=== PATIENT | male | born 2000 | race Caucasian/White ===

== ENCOUNTER 2021-03-02 14:32 | Inpatient (IN) ==
[2021-03-02 15:37] LABS: Basophils % 0.4 %; Eosinophils # 0.1 K/mcL (0.0-0.6); Eosinophils % 1.6 %; Hematocrit 43.6 % (37.5-50.1); Hemoglobin 14.3 g/dL (12.9-16.9); Immature Granulocytes % 0.3 % (0-4); Lymphocytes # 1.7 K/mcL (0.6-4.6); Lymphocytes % 18.9 %; Mean Corpuscular HGB Conc 32.8 g/dL (31.6-35.5); Mean Corpuscular Hemoglobin 30.2 pg (28.0-33.3); Mean Platelet Volume 9.4 fL (9.4-12.4); Monocytes # 0.9 K/mcL (0.0-1.3); Monocytes % 9.9 %; Neutrophils # 6.2 K/mcL (1.6-8.9); Platelet Count 348 K/mcL (140-400); Red Blood Count 4.74 M/mcL (4.19-5.50); Red Cell Distribution Width 11.6 % (11.5-14.5); Segmented Neutrophils % 68.9 %
[2021-03-02 15:38] LABS: Bacteria,Urine Few per hpf (None-Few); Bilirubin,Urine Negative (Negative); Blood,Urine Trace (Negative); Clarity,Urine Clear (Clear); Color,Urine Yellow (Yellow); Glucose,Urine (UA) Normal (Normal); Ketones,Urine Negative (Negative); Leukocyte Esterase,Urine Negative (Negative); Mucus,Urine Few per lpf (None-Few); Nitrite,Urine Negative (Negative); Protein,Urine 30 mg/dL (Neg-Trace); Specific Gravity,Urine > 1.030 (1.010-1.025); Squamous Epithelial Cell,Urine Few per hpf (None-Few); Urobilinogen,Urine Normal (Normal); WBC,Urine 0-3 per hpf (0-3)
[2021-03-02 15:46] LABS: Amphetamine Screen,Urine Negative ng/mL (Cutoff=1000); Barbiturate Screen,Urine Negative ng/mL (Cutoff=200); Benzodiazepines Screen,Urine Negative ng/mL (Cutoff=200); Cannabinoid Screen,Urine Negative ng/mL (Cutoff = 50); Cocaine Screen,Urine Negative ng/mL (Cutoff= 300); Opiate Screen,Urine Negative ng/mL (Cutoff=300); Phencyclidine Screen,Urine Negative ng/mL (Cutoff=25)
[2021-03-02 15:57] LABS: Acetaminophen < 10 mcg/mL (10-20); BUN/Creatinine Ratio 17 (6-26); Blood Urea Nitrogen 17 mg/dL (6-20); Calcium 9.2 mg/dL (8.6-10.3); Carbon Dioxide 27 mEq/L (23-29); Chloride 106 mEq/L (98-107); Chol/HDL Ratio 2.6 (0-4.9); Cholesterol 104 mg/dL (< 200); Ethanol < 10 mg/dL (Less than 10); Glucose 83 mg/dL (70-105); HDL Cholesterol 40 mg/dL (40-59); LDL Cholesterol,Calculated 48 mg/dL (< 100); Osmolality,Calculated 287 (280-300); Potassium 3.9 mEq/L (3.5-5.1); Salicylate < 2.5 mg/dL (15.0-30.0); Sodium 138 mEq/L (136-145); Triglycerides 78 mg/dL (< 150); eGFR For African Americans > 60; eGFR For Non-African Americans > 60
[2021-03-02] MEDS ORDERED: *HR* LORazepam 1 MG TABLET PO PRN (18:46)
[2021-03-02] MEDS ORDERED: *HR* LORazepam 2 MG/ML VIAL IM PRN (18:46)
[2021-03-02] MEDS ORDERED: Haloperidol Lactate 5 MG/ML VIAL IM PRN (18:46)
[2021-03-02] MEDS ORDERED: Acetaminophen 325 MG TABLET PO PRN (18:46)
[2021-03-02] MEDS ORDERED: QUEtiapine Fumarate 25 MG TABLET PO PRN (18:46)
[2021-03-02] MEDS ORDERED: hydrOXYzine pamoate 25 MG CAPSULE PO PRN (18:46)
[2021-03-02] MEDS ORDERED: Mag Hydrox/Al Hydrox/Simeth 30 ML UDC PO PRN (18:46)
[2021-03-02] MEDS ORDERED: traZODone 50 MG TABLET PO PRN (18:46)
[2021-03-02] MEDS ORDERED: haloperidoL 5 MG TABLET PO PRN (18:46)
[2021-03-02] MEDS ORDERED: MOM Conc 10 ML UD.LIQ PO PRN (18:46)
[2021-03-02] MEDS ORDERED: Ibuprofen 400 MG TABLET PO PRN (18:46)
[2021-03-02 21:28] LABS: Estimated Average Glucose 100 mg/dl; Hemoglobin A1C 5.1 %
[2021-03-03] MEDS: BuPROPion XL (24 HR) 150 MG TABLET PO SCH (14:37)
[2021-03-03] MEDS ORDERED: traZODone 50 MG TABLET PO SCH (21:00)
[2021-03-04] MEDS: BuPROPion XL (24 HR) 150 MG TABLET PO SCH (08:41)
[2021-03-04] MEDS: traZODone 50 MG TABLET PO SCH (21:06)
[2021-03-05] MEDS: BuPROPion XL (24 HR) 150 MG TABLET PO SCH (08:26)
[2021-03-05] MEDS: traZODone 50 MG TABLET PO SCH (21:39)
[2021-03-06] MEDS: BuPROPion XL (24 HR) 150 MG TABLET PO SCH (08:22)
[2021-03-06 09:13] VITALS: BP 124/78
== END 2021-03-06 17:05 | disposition home or self-care (01) | DRG 881 ==
LOC: EMEROOARM 14:32 → 1ANU 18:17
PROVIDERS: ADMIT Internal Medicine; ATTEND Internal Medicine

== ENCOUNTER 2021-03-24 14:07 | Inpatient (IN) ==
[2021-03-24 14:48] LABS: Bilirubin,Urine Negative (Negative); Blood,Urine Negative (Negative); Clarity,Urine Clear (Clear); Color,Urine Colorless (Yellow); Glucose,Urine (UA) Normal (Normal); Ketones,Urine Negative (Negative); Leukocyte Esterase,Urine Negative (Negative); Nitrite,Urine Negative (Negative); Protein,Urine Negative (Neg-Trace); Specific Gravity,Urine 1.009 (1.010-1.025); Urobilinogen,Urine Normal (Normal)
[2021-03-24 14:56] LABS: Basophils % 0.6 %; Eosinophils # 0.1 K/mcL (0.0-0.6); Eosinophils % 1.6 %; Hemoglobin 15.9 g/dL (12.9-16.9); Immature Granulocytes % 0.3 % (0-4); Lymphocytes # 1.2 K/mcL (0.6-4.6); Lymphocytes % 17.5 %; Mean Corpuscular HGB Conc 33.1 g/dL (31.6-35.5); Mean Corpuscular Hemoglobin 30.3 pg (28.0-33.3); Mean Corpuscular Volume 91.6 fL (83.0-100.0); Mean Platelet Volume 9.4 fL (9.4-12.4); Monocytes # 0.6 K/mcL (0.0-1.3); Monocytes % 8.3 %; Platelet Count 305 K/mcL (140-400); Red Blood Count 5.24 M/mcL (4.19-5.50); Red Cell Distribution Width 11.5 % (11.5-14.5); Segmented Neutrophils % 71.7 %
[2021-03-24 14:58] LABS: Amphetamine Screen,Urine Negative ng/mL (Cutoff=1000); Barbiturate Screen,Urine Negative ng/mL (Cutoff=200); Benzodiazepines Screen,Urine Negative ng/mL (Cutoff=200); Cannabinoid Screen,Urine Negative ng/mL (Cutoff = 50); Cocaine Screen,Urine Negative ng/mL (Cutoff= 300); Opiate Screen,Urine Negative ng/mL (Cutoff=300); Phencyclidine Screen,Urine Negative ng/mL (Cutoff=25)
[2021-03-24 15:19] LABS: Acetaminophen < 10 mcg/mL (10-20); BUN/Creatinine Ratio 15 (6-26); Blood Urea Nitrogen 13 mg/dL (6-20); Calcium 9.7 mg/dL (8.6-10.3); Carbon Dioxide 27 mEq/L (23-29); Chloride 103 mEq/L (98-107); Chol/HDL Ratio 3.3 (0-4.9); Cholesterol 133 mg/dL (< 200); Ethanol < 10 mg/dL (Less than 10); Glucose 87 mg/dL (70-105); HDL Cholesterol 40 mg/dL (40-59); LDL Cholesterol,Calculated 73 mg/dL (< 100); Osmolality,Calculated 283 (280-300); Potassium 3.8 mEq/L (3.5-5.1); Salicylate < 2.5 mg/dL (15.0-30.0); Sodium 137 mEq/L (136-145); Triglycerides 100 mg/dL (< 150); eGFR For African Americans > 60; eGFR For Non-African Americans > 60
[2021-03-24 15:23] LABS: Estimated Average Glucose 103 mg/dl; Hemoglobin A1C 5.2 %
[2021-03-24] MEDS ORDERED: *HR* LORazepam 2 MG/ML VIAL IM ONE (16:17)
[2021-03-24] MEDS ORDERED: Acetaminophen 325 MG TABLET PO PRN (18:31)
[2021-03-24] MEDS: traZODone 50 MG TABLET PO PRN (21:34)
[2021-03-25] MEDS ORDERED: MOM Conc 10 ML UD.LIQ PO PRN (08:05)
[2021-03-25] MEDS ORDERED: haloperidoL 5 MG TABLET PO PRN (08:05)
[2021-03-25] MEDS ORDERED: *HR* LORazepam 1 MG TABLET PO PRN (08:05)
[2021-03-25] MEDS ORDERED: Mag Hydrox/Al Hydrox/Simeth 30 ML UDC PO PRN (08:05)
[2021-03-25] MEDS ORDERED: Haloperidol Lactate 5 MG/ML VIAL IM PRN (08:05)
[2021-03-25] MEDS ORDERED: *HR* LORazepam 2 MG/ML VIAL IM PRN (08:05)
[2021-03-25] MEDS ORDERED: BuPROPion XL (24 HR) 150 MG TABLET PO SCH (09:00)
[2021-03-25] MEDS: BuPROPion XL (24 HR) 150 MG TABLET PO SCH (10:22)
[2021-03-25] MEDS: traZODone 50 MG TABLET PO PRN (21:30)
[2021-03-26] MEDS: BuPROPion XL (24 HR) 150 MG TABLET PO SCH (09:40)
[2021-03-26] MEDS: traZODone 50 MG TABLET PO PRN (20:54)
[2021-03-27] MEDS: ARIPiprazole 5 MG TABLET PO SCH (08:42)
[2021-03-27] MEDS: BuPROPion XL (24 HR) 150 MG TABLET PO SCH (09:15)
[2021-03-27] MEDS: traZODone 50 MG TABLET PO PRN (20:26)
[2021-03-28] MEDS: BuPROPion XL (24 HR) 150 MG TABLET PO SCH (08:24)
[2021-03-28] MEDS: ARIPiprazole 5 MG TABLET PO SCH (08:24)
[2021-03-28] MEDS: Melatonin 3 MG TABLET PO SCH (21:14)
[2021-03-28] MEDS: hydrOXYzine pamoate 25 MG CAPSULE PO PRN (21:15)
[2021-03-29] MEDS: ARIPiprazole 5 MG TABLET PO SCH (09:03)
[2021-03-29] MEDS: BuPROPion XL (24 HR) 150 MG TABLET PO SCH (09:03)
[2021-03-29] MEDS: hydrOXYzine pamoate 25 MG CAPSULE PO PRN (20:06)
[2021-03-29] MEDS: Melatonin 3 MG TABLET PO SCH (20:06)
[2021-03-30] MEDS: ARIPiprazole 5 MG TABLET PO SCH (08:26)
[2021-03-30] MEDS: BuPROPion XL (24 HR) 150 MG TABLET PO SCH (08:26)
[2021-03-30 09:21] VITALS: BP 129/85; PULSE 75; TEMP 98; O2SAT 98
== END 2021-03-30 16:00 | disposition home or self-care (01) | DRG 885 ==
LOC: EMEROOARM 14:07 → 1ANU 18:26
PROVIDERS: ADMIT Psychiatry & Neurology Psychiatry; ATTEND Psychiatry & Neurology Psychiatry

== ENCOUNTER 2021-12-19 14:03 | Inpatient (IN) ==
[2021-12-19 14:36] LABS: Bilirubin,Urine Negative (Negative); Blood,Urine Trace (Negative); Clarity,Urine Clear (Clear); Color,Urine Light-Yellow (Yellow); Glucose,Urine (UA) Normal (Normal); Ketones,Urine Negative (Negative); Leukocyte Esterase,Urine Negative (Negative); Mucus,Urine Few per lpf (None-Few); Nitrite,Urine Negative (Negative); Protein,Urine Negative (Neg-Trace); RBC,Urine 0-3 per hpf (0-3); Specific Gravity,Urine 1.015 (1.010-1.025); Squamous Epithelial Cell,Urine Few per hpf (None-Few); Urobilinogen,Urine Normal (Normal); WBC,Urine 0-3 per hpf (0-3)
[2021-12-19 14:47] LABS: Amphetamine Screen,Urine Negative ng/mL (Cutoff=1000); Barbiturate Screen,Urine Negative ng/mL (Cutoff=200); Benzodiazepines Screen,Urine Negative ng/mL (Cutoff=200); Cannabinoid Screen,Urine Negative ng/mL (Cutoff = 50); Cocaine Screen,Urine Negative ng/mL (Cutoff= 300); Opiate Screen,Urine Negative ng/mL (Cutoff=300); Phencyclidine Screen,Urine Negative ng/mL (Cutoff=25)
[2021-12-19 14:48] LABS: Basophils % 0.6 %; Eosinophils # 0.3 K/mcL (0.0-0.6); Eosinophils % 4.6 %; Hemoglobin 15.4 g/dL (12.9-16.9); Immature Granulocytes % 0.3 % (0-4); Lymphocytes # 1.8 K/mcL (0.6-4.6); Lymphocytes % 25.6 %; Mean Corpuscular HGB Conc 33.5 g/dL (31.6-35.5); Mean Corpuscular Hemoglobin 30.7 pg (28.0-33.3); Mean Corpuscular Volume 91.8 fL (83.0-100.0); Mean Platelet Volume 9.6 fL (9.4-12.4); Monocytes # 0.6 K/mcL (0.0-1.3); Monocytes % 8.2 %; Neutrophils # 4.2 K/mcL (1.6-8.9); Platelet Count 337 K/mcL (140-400); Red Blood Count 5.01 M/mcL (4.19-5.50); Red Cell Distribution Width 11.9 % (11.5-14.5); Segmented Neutrophils % 60.7 %
[2021-12-19 14:58] LABS: Acetaminophen < 10 mcg/mL (10-20); BUN/Creatinine Ratio 15 (6-26); Blood Urea Nitrogen 14 mg/dL (6-20); Calcium 9.7 mg/dL (8.6-10.3); Carbon Dioxide 26 mEq/L (23-29); Chloride 103 mEq/L (98-107); Cholesterol 134 mg/dL (< 200); Ethanol < 10 mg/dL (Less than 10); Glucose 103 mg/dL (70-105); HDL Cholesterol 44 mg/dL (40-59); LDL Cholesterol,Calculated 53 mg/dL (< 100); Osmolality,Calculated 285 (280-300); Potassium 3.7 mEq/L (3.5-5.1); Salicylate < 2.5 mg/dL (15.0-30.0); Sodium 137 mEq/L (136-145); Triglycerides 186 mg/dL (< 150); eGFR For African Americans > 60 (> 60); eGFR For Non-African Americans > 60 (> 60)
[2021-12-19 15:53] LABS: Estimated Average Glucose 103 mg/dl; Hemoglobin A1C 5.2 %
[2021-12-19 17:56] LABS: Influenza A PCR Negative (Negative); Influenza B PCR Negative (Negative); Resp. Syncytial Virus PCR Negative (Negative)
[2021-12-19 18:22] LABS: SARS-CoV-2 by PCR (In House) Negative (Negative)
[2021-12-19] MEDS ORDERED: Acetaminophen 325 MG TABLET PO PRN (18:38)
[2021-12-19] MEDS ORDERED: *HR* LORazepam 2 MG/ML VIAL IM PRN (18:38)
[2021-12-19] MEDS ORDERED: hydrOXYzine pamoate 25 MG CAPSULE PO PRN (18:38)
[2021-12-19] MEDS ORDERED: Haloperidol Lactate 5 MG/ML VIAL IM PRN (18:38)
[2021-12-19] MEDS ORDERED: haloperidoL 5 MG TABLET PO PRN (18:38)
[2021-12-19] MEDS ORDERED: traZODone 50 MG TABLET PO PRN (18:38)
[2021-12-19] MEDS ORDERED: *HR* LORazepam 1 MG TABLET PO PRN (18:38)
[2021-12-19] MEDS ORDERED: Ibuprofen 400 MG TABLET PO PRN (18:38)
[2021-12-20] MEDS ORDERED: Mag Hydrox/Al Hydrox/Simeth 30 ML UDC PO PRN (08:20)
[2021-12-20] MEDS ORDERED: MOM Conc 10 ML UD.LIQ PO PRN (08:20)
[2021-12-20] MEDS: ARIPiprazole 5 MG TABLET PO SCH (11:39)
[2021-12-20] MEDS: BuPROPion XL (24 HR) 150 MG TABLET PO SCH (11:39)
[2021-12-21] MEDS: ARIPiprazole 5 MG TABLET PO SCH (08:40)
[2021-12-21] MEDS: BuPROPion XL (24 HR) 150 MG TABLET PO SCH (08:40)
[2021-12-21 10:11] VITALS: BP 121/78; PULSE 79; TEMP 97.8; O2SAT 94
== END 2021-12-21 12:15 | disposition home or self-care (01) | DRG 885 ==
LOC: EMEROOARM 14:03 → 1ANU 18:48
PROVIDERS: ADMIT Psychiatry & Neurology Psychiatry; ATTEND Psychiatry & Neurology Psychiatry

== ENCOUNTER 2022-03-08 06:04 | Inpatient (IN) ==
[2022-03-08] MEDS ORDERED: 0.9 % Sodium Chloride 1,000 ML IVC ONE (07:00)
[2022-03-08 07:01] LABS: Bacteria,Urine Few per hpf (None-Few); Bilirubin,Urine Negative (Negative); Blood,Urine Trace (Negative); Clarity,Urine Clear (Clear); Color,Urine Light-Yellow (Yellow); Glucose,Urine (UA) Normal (Normal); Ketones,Urine 20 mg/dL (Negative); Leukocyte Esterase,Urine Negative (Negative); Mucus,Urine Moderate per lpf (None-Few); Nitrite,Urine Negative (Negative); PH,Urine 6.5 pH Units (5.0-8.0); Protein,Urine Negative (Neg-Trace); Specific Gravity,Urine 1.013 (1.010-1.025); Squamous Epithelial Cell,Urine Few per hpf (None-Few); Urobilinogen,Urine Normal (Normal); WBC,Urine 0-3 per hpf (0-3)
[2022-03-08 07:04] LABS: Basophils % 0.5 %; Eosinophils # 0.1 K/mcL (0.0-0.6); Hematocrit 47.1 % (37.5-50.1); Hemoglobin 16.1 g/dL (12.9-16.9); Immature Granulocytes % 0.3 % (0-4); Lymphocytes # 1.2 K/mcL (0.6-4.6); Lymphocytes % 20.1 %; Mean Corpuscular HGB Conc 34.2 g/dL (31.6-35.5); Mean Corpuscular Hemoglobin 30.5 pg (28.0-33.3); Mean Corpuscular Volume 89.2 fL (83.0-100.0); Mean Platelet Volume 9.7 fL (9.4-12.4); Monocytes # 0.6 K/mcL (0.0-1.3); Monocytes % 9.7 %; Platelet Count 332 K/mcL (140-400); Red Blood Count 5.28 M/mcL (4.19-5.50); Red Cell Distribution Width 11.9 % (11.5-14.5); Segmented Neutrophils % 68.4 %; White Blood Count 5.9 K/mcL (4.3-11.1)
[2022-03-08 08:03] LABS: Acetaminophen 154 mcg/mL (10-20); Alanine Aminotransferase 46 Units/L (7-52); Albumin 4.9 g/dL (3.5-5.7); Albumin/Globulin Ratio 1.8 (1.1-2.2); Alkaline Phosphatase 56 Units/L (34-104); Aspartate Amino Transferase 23 Units/L (13-39); BUN/Creatinine Ratio 15 (6-26); Bilirubin,Direct 0.2 mg/dL (0.0-0.2); Bilirubin,Indirect 1.4 mg/dL (0.0-1.0); Bilirubin,Total 1.6 mg/dL (0.3-1.0); Blood Urea Nitrogen 15 mg/dL (6-20); Calcium 8.8 mg/dL (8.6-10.3); Carbon Dioxide 25 mEq/L (23-29); Chloride 103 mEq/L (98-107); Chol/HDL Ratio 3.2 (0-4.9); Cholesterol 140 mg/dL (< 200); Ethanol < 10 mg/dL (Less than 10); Globulin 2.8 g/dL (2.4-3.5); Glucose 112 mg/dL (70-105); HDL Cholesterol 44 mg/dL (40-59); LDL Cholesterol,Calculated 82 mg/dL (< 100); Osmolality,Calculated 286 (280-300); Salicylate < 2.5 mg/dL (15.0-30.0); Sodium 137 mEq/L (136-145); Total Protein 7.7 g/dL (6.4-8.9); Triglycerides 72 mg/dL (< 150); Troponin I < 0.03 ng/mL (< 0.04); eGFR For African Americans > 60 (> 60); eGFR For Non-African Americans > 60 (> 60)
[2022-03-08 08:25] LABS: Amphetamine Screen,Urine Negative ng/mL (Cutoff=1000); Barbiturate Screen,Urine Negative ng/mL (Cutoff=200)
[2022-03-08 08:27] LABS: Benzodiazepines Screen,Urine Negative ng/mL (Cutoff=300); Cannabinoid Screen,Urine Negative ng/mL (Cutoff = 50); Cocaine Screen,Urine Negative ng/mL (Cutoff= 300); Opiate Screen,Urine Negative ng/mL (Cutoff=300); Phencyclidine Screen,Urine Negative ng/mL (Cutoff=25)
[2022-03-08] MEDS ORDERED: Acetylcysteine IV 10,900 MG in D5% in Water 250 ML IVC ONE (08:30)
[2022-03-08 09:38] LABS: ABG Base Excess -2 mEq/L (-2 to 3); ABG HCO3 22 mEq/L (21-27); ABG Oxygen Saturation 98 % (95-98); ABG PCO2 35 mmHg (35-45); ABG PH 7.41 pH Units (7.32-7.45); ABG PO2 102 mmHg (85-104); ABG TCO2 23 mEq/L (20-26)
[2022-03-08 10:59] LABS: Basophils % 0.4 %; Eosinophils % 0.3 %; Hematocrit 43.9 % (37.5-50.1); Hemoglobin 14.8 g/dL (12.9-16.9); Immature Granulocytes % 0.3 % (0-4); Lymphocytes # 1.2 K/mcL (0.6-4.6); Lymphocytes % 16.2 %; Mean Corpuscular HGB Conc 33.7 g/dL (31.6-35.5); Mean Corpuscular Hemoglobin 30.5 pg (28.0-33.3); Mean Corpuscular Volume 90.5 fL (83.0-100.0); Mean Platelet Volume 9.5 fL (9.4-12.4); Monocytes # 0.7 K/mcL (0.0-1.3); Monocytes % 9.8 %; Neutrophils # 5.3 K/mcL (1.6-8.9); Platelet Count 301 K/mcL (140-400); Red Blood Count 4.85 M/mcL (4.19-5.50); Red Cell Distribution Width 11.8 % (11.5-14.5); White Blood Count 7.3 K/mcL (4.3-11.1)
[2022-03-08] MEDS ORDERED: Acetylcysteine IV 3,600 MG in D5% in Water 500 ML IVC ONE (11:00)
[2022-03-08 11:05] LABS: INR 1.2; Prothrombin Time 13.8 Seconds (9.4-12.1)
[2022-03-08 11:17] LABS: Alanine Aminotransferase 37 Units/L (7-52); Albumin 4.1 g/dL (3.5-5.7); Albumin/Globulin Ratio 1.5 (1.1-2.2); Alkaline Phosphatase 46 Units/L (34-104); Aspartate Amino Transferase 19 Units/L (13-39); BUN/Creatinine Ratio 15 (6-26); Bilirubin,Direct 0.2 mg/dL (0.0-0.2); Bilirubin,Total 1.2 mg/dL (0.3-1.0); Blood Urea Nitrogen 13 mg/dL (6-20); Calcium 8.9 mg/dL (8.6-10.3); Carbon Dioxide 23 mEq/L (23-29); Chloride 109 mEq/L (98-107); Globulin 2.7 g/dL (2.4-3.5); Glucose 105 mg/dL (70-105); Osmolality,Calculated 286 (280-300); Sodium 138 mEq/L (136-145); Total Protein 6.8 g/dL (6.4-8.9); eGFR For African Americans > 60 (> 60); eGFR For Non-African Americans > 60 (> 60)
[2022-03-08 11:40] LABS: Acetaminophen 49 mcg/mL (10-20)
[2022-03-08] MEDS ORDERED: Ondansetron 4 MG/2 ML VIAL IVP ONE (12:05)
[2022-03-08] MEDS ORDERED: Melatonin 3 MG TABLET PO PRN (12:06)
[2022-03-08] MEDS ORDERED: Naloxone 0.4 MG/ML INJ IVP PRN (12:06)
[2022-03-08 12:20] LABS: Estimated Average Glucose 100 mg/dl; Hemoglobin A1C 5.1 %
[2022-03-08] MEDS ORDERED: DilTIAZem CD (24hr) 180 MG CAP.ER.24H PO SCH (13:00)
[2022-03-08] MEDS: 0.9 % Sodium Chloride 1,000 ML IVC SCH (14:51)
[2022-03-08] MEDS ORDERED: Acetylcysteine IV 7,300 MG in D5% in Water 1,000 ML IVC ONE (16:00)
[2022-03-08] MEDS: DilTIAZem 50 MG/50 ML IV.SOLN IVC SCH (16:39)
[2022-03-08 21:18] LABS: Alanine Aminotransferase 32 Units/L (7-52); Albumin 3.8 g/dL (3.5-5.7); Albumin/Globulin Ratio 1.5 (1.1-2.2); Alkaline Phosphatase 40 Units/L (34-104); Aspartate Amino Transferase 14 Units/L (13-39); BUN/Creatinine Ratio 11 (6-26); Blood Urea Nitrogen 10 mg/dL (6-20); Calcium 8.8 mg/dL (8.6-10.3); Carbon Dioxide 24 mEq/L (23-29); Chloride 107 mEq/L (98-107); Globulin 2.5 g/dL (2.4-3.5); Glucose 102 mg/dL (70-105); Osmolality,Calculated 289 (280-300); Potassium 3.7 mEq/L (3.5-5.1); Sodium 140 mEq/L (136-145); Total Protein 6.3 g/dL (6.4-8.9); eGFR For African Americans > 60 (> 60); eGFR For Non-African Americans > 60 (> 60)
[2022-03-08] MEDS ORDERED: Sodium Bicarbonate 50 MEQ/50 ML VIAL IVP ONE (21:23)
[2022-03-09] MEDS: 0.9 % Sodium Chloride 1,000 ML IVC SCH (01:03)
[2022-03-09 02:09] LABS: Basophils % 0.3 %; Eosinophils # 0.2 K/mcL (0.0-0.6); Eosinophils % 1.9 %; Hematocrit 42.1 % (37.5-50.1); Hemoglobin 13.6 g/dL (12.9-16.9); Immature Granulocytes % 0.3 % (0-4); Lymphocytes # 2.3 K/mcL (0.6-4.6); Lymphocytes % 24.3 %; Mean Corpuscular HGB Conc 32.3 g/dL (31.6-35.5); Mean Corpuscular Hemoglobin 29.9 pg (28.0-33.3); Mean Corpuscular Volume 92.5 fL (83.0-100.0); Mean Platelet Volume 9.9 fL (9.4-12.4); Monocytes # 0.9 K/mcL (0.0-1.3); Monocytes % 9.8 %; Platelet Count 268 K/mcL (140-400); Red Blood Count 4.55 M/mcL (4.19-5.50); Segmented Neutrophils % 63.4 %; White Blood Count 9.5 K/mcL (4.3-11.1)
[2022-03-09 02:18] LABS: INR 1.3; Prothrombin Time 14.3 Seconds (9.4-12.1)
[2022-03-09 02:29] LABS: Alanine Aminotransferase 27 Units/L (7-52); Albumin 3.6 g/dL (3.5-5.7); Albumin/Globulin Ratio 1.6 (1.1-2.2); Alkaline Phosphatase 38 Units/L (34-104); Aspartate Amino Transferase 13 Units/L (13-39); BUN/Creatinine Ratio 17 (6-26); Bilirubin,Total 0.7 mg/dL (0.3-1.0); Blood Urea Nitrogen 14 mg/dL (6-20); Calcium 8.4 mg/dL (8.6-10.3); Carbon Dioxide 24 mEq/L (23-29); Chloride 107 mEq/L (98-107); Globulin 2.3 g/dL (2.4-3.5); Glucose 120 mg/dL (70-105); Magnesium 1.8 mg/dL (1.6-2.6); Osmolality,Calculated 288 (280-300); Phosphorous 2.4 mg/dL (2.7-4.5); Potassium 3.6 mEq/L (3.5-5.1); Sodium 138 mEq/L (136-145); Total Protein 5.9 g/dL (6.4-8.9); eGFR For African Americans > 60 (> 60); eGFR For Non-African Americans > 60 (> 60)
[2022-03-09] MEDS ORDERED: Perflutren Lipid Microsphere 1.3 ML in 0.9 % Sodium Chloride 8.7 ML IVP PRN (07:40)
[2022-03-09 09:02] LABS: Acetaminophen < 10 mcg/mL (10-20); Alanine Aminotransferase 30 Units/L (7-52); Albumin/Globulin Ratio 1.9 (1.1-2.2); Alkaline Phosphatase 41 Units/L (34-104); Aspartate Amino Transferase 15 Units/L (13-39); Bilirubin,Direct 0.2 mg/dL (0.0-0.2); Bilirubin,Indirect 0.7 mg/dL (0.0-1.0); Bilirubin,Total 0.9 mg/dL (0.3-1.0); Globulin 2.1 g/dL (2.4-3.5); Total Protein 6.1 g/dL (6.4-8.9)
[2022-03-09 12:30] LABS: Alanine Aminotransferase 30 Units/L (7-52); Albumin 4.1 g/dL (3.5-5.7); Albumin/Globulin Ratio 1.9 (1.1-2.2); Alkaline Phosphatase 42 Units/L (34-104); Aspartate Amino Transferase 18 Units/L (13-39); BUN/Creatinine Ratio 10 (6-26); Bilirubin,Total 0.8 mg/dL (0.3-1.0); Blood Urea Nitrogen 8 mg/dL (6-20); Calcium 8.5 mg/dL (8.6-10.3); Carbon Dioxide 21 mEq/L (23-29); Chloride 108 mEq/L (98-107); Globulin 2.2 g/dL (2.4-3.5); Glucose 100 mg/dL (70-105); Osmolality,Calculated 284 (280-300); Potassium 3.7 mEq/L (3.5-5.1); Sodium 138 mEq/L (136-145); Total Protein 6.3 g/dL (6.4-8.9); eGFR For African Americans > 60 (> 60); eGFR For Non-African Americans > 60 (> 60)
[2022-03-09] MEDS: DilTIAZem 50 MG/50 ML IV.SOLN IVC SCH (17:38)
[2022-03-09 20:04] LABS: Alanine Aminotransferase 33 Units/L (7-52); Albumin 4.4 g/dL (3.5-5.7); Albumin/Globulin Ratio 1.8 (1.1-2.2); Alkaline Phosphatase 47 Units/L (34-104); Aspartate Amino Transferase 22 Units/L (13-39); BUN/Creatinine Ratio 9 (6-26); Bilirubin,Total 0.7 mg/dL (0.3-1.0); Blood Urea Nitrogen 10 mg/dL (6-20); Calcium 8.8 mg/dL (8.6-10.3); Carbon Dioxide 22 mEq/L (23-29); Chloride 107 mEq/L (98-107); Globulin 2.4 g/dL (2.4-3.5); Glucose 108 mg/dL (70-105); Osmolality,Calculated 286 (280-300); Potassium 4.1 mEq/L (3.5-5.1); Sodium 138 mEq/L (136-145); Total Protein 6.8 g/dL (6.4-8.9); eGFR For African Americans > 60 (> 60); eGFR For Non-African Americans > 60 (> 60)
[2022-03-10 06:59] VITALS: BP 127/77; PULSE 70; TEMP 98.1; O2SAT 97
[2022-03-10] MEDS ORDERED: Aspirin Enteric Coated 81 MG Tablet PO SCH (09:00)
[2022-03-10] MEDS ORDERED: BuPROPion XL (24 HR) 150 MG TABLET PO SCH (09:00)
[2022-03-10 11:45] LABS: Alanine Aminotransferase 36 Units/L (7-52); Albumin 4.7 g/dL (3.5-5.7); Alkaline Phosphatase 48 Units/L (34-104); Aspartate Amino Transferase 31 Units/L (13-39); BUN/Creatinine Ratio 11 (6-26); Bilirubin,Total 0.9 mg/dL (0.3-1.0); Blood Urea Nitrogen 9 mg/dL (6-20); Calcium 9.5 mg/dL (8.6-10.3); Carbon Dioxide 26 mEq/L (23-29); Chloride 105 mEq/L (98-107); Globulin 2.4 g/dL (2.4-3.5); Glucose 89 mg/dL (70-105); Osmolality,Calculated 284 (280-300); Potassium 3.9 mEq/L (3.5-5.1); Sodium 138 mEq/L (136-145); Total Protein 7.1 g/dL (6.4-8.9); eGFR For African Americans > 60 (> 60); eGFR For Non-African Americans > 60 (> 60)
[2022-03-10 11:57] LABS: Influenza A PCR Negative (Negative); Influenza B PCR Negative (Negative); Resp. Syncytial Virus PCR Negative (Negative); SARS-CoV-2 by PCR (In House) Negative (Negative)
== END 2022-03-10 12:11 | DRG 918 ==
LOC: 3BNU 06:04 → EMEROOARM 06:04 → SUATTDRO 12:36 → 3BNU 13:13
PROVIDERS: ADMIT General Practice; ATTEND Internal Medicine

== ENCOUNTER 2022-03-10 12:10 | Inpatient (IN) ==
[2022-03-10] MEDS ORDERED: haloperidoL 5 MG TABLET PO PRN (12:30)
[2022-03-10] MEDS ORDERED: Ibuprofen 400 MG TABLET PO PRN (12:30)
[2022-03-10] MEDS ORDERED: Haloperidol Lactate 5 MG/ML VIAL IM PRN (12:30)
[2022-03-10] MEDS ORDERED: Mag Hydrox/Al Hydrox/Simeth 30 ML UDC PO PRN (12:30)
[2022-03-10] MEDS ORDERED: hydrOXYzine pamoate 25 MG CAPSULE PO PRN (12:30)
[2022-03-10] MEDS ORDERED: MOM Conc 10 ML UD.LIQ PO PRN (12:30)
[2022-03-10] MEDS ORDERED: *HR* LORazepam 1 MG TABLET PO PRN (12:30)
[2022-03-10] MEDS ORDERED: *HR* LORazepam 2 MG/ML VIAL IM PRN (12:30)
[2022-03-10] MEDS: traZODone 50 MG TABLET PO PRN (20:44)
[2022-03-11] MEDS: BuPROPion XL (24 HR) 150 MG TABLET PO SCH (13:24)
[2022-03-11] MEDS: ARIPiprazole 5 MG TABLET PO SCH (13:24)
[2022-03-11] MEDS: traZODone 50 MG TABLET PO PRN (20:38)
[2022-03-12] MEDS: ARIPiprazole 5 MG TABLET PO SCH (08:24)
[2022-03-12] MEDS: BuPROPion XL (24 HR) 150 MG TABLET PO SCH (08:24)
[2022-03-12 09:09] VITALS: BP 97/62; PULSE 73; TEMP 97.1; O2SAT 98
== END 2022-03-12 11:59 | disposition home or self-care (01) | DRG 885 ==
LOC: 1ANU 12:10
PROVIDERS: ADMIT Psychiatry & Neurology Psychiatry; ATTEND Psychiatry & Neurology Psychiatry

== ENCOUNTER 2022-04-22 21:43 | Inpatient (IN) ==
[2022-04-22 23:08] LABS: Basophils % 0.5 %; Eosinophils # 0.4 K/mcL (0.0-0.6); Eosinophils % 4.2 %; Hematocrit 45.9 % (37.5-50.1); Hemoglobin 15.3 g/dL (12.9-16.9); Immature Granulocytes % 0.3 % (0-4); Lymphocytes # 2.1 K/mcL (0.6-4.6); Lymphocytes % 24.9 %; Mean Corpuscular HGB Conc 33.3 g/dL (31.6-35.5); Mean Corpuscular Hemoglobin 30.5 pg (28.0-33.3); Mean Corpuscular Volume 91.6 fL (83.0-100.0); Mean Platelet Volume 9.7 fL (9.4-12.4); Monocytes # 0.9 K/mcL (0.0-1.3); Monocytes % 10.1 %; Neutrophils # 5.2 K/mcL (1.6-8.9); Platelet Count 339 K/mcL (140-400); Red Blood Count 5.01 M/mcL (4.19-5.50); Red Cell Distribution Width 11.9 % (11.5-14.5); White Blood Count 8.6 K/mcL (4.3-11.1)
[2022-04-22 23:27] LABS: Acetaminophen < 10 mcg/mL (10-20); BUN/Creatinine Ratio 17 (6-26); Blood Urea Nitrogen 15 mg/dL (6-20); Calcium 9.1 mg/dL (8.6-10.3); Carbon Dioxide 26 mEq/L (23-29); Chloride 106 mEq/L (98-107); Ethanol < 10 mg/dL (Less than 10); Glucose 92 mg/dL (70-105); Osmolality,Calculated 286 (280-300); Potassium 3.9 mEq/L (3.5-5.1); Salicylate < 2.5 mg/dL (15.0-30.0); Sodium 138 mEq/L (136-145)
[2022-04-23 00:01] LABS: Amphetamine Screen,Urine Negative ng/mL (Cutoff=1000); Barbiturate Screen,Urine Negative ng/mL (Cutoff=200); Benzodiazepines Screen,Urine Negative ng/mL (Cutoff=200); Cannabinoid Screen,Urine Negative ng/mL (Cutoff = 50); Cocaine Screen,Urine Negative ng/mL (Cutoff= 300); Opiate Screen,Urine Negative ng/mL (Cutoff=300); Phencyclidine Screen,Urine Negative ng/mL (Cutoff=25)
[2022-04-23 00:04] LABS: Bilirubin,Urine Negative (Negative); Blood,Urine Small (Negative); Clarity,Urine Clear (Clear); Color,Urine Yellow (Yellow); Glucose,Urine (UA) Normal (Normal); Ketones,Urine Trace mg/dL (Negative); Leukocyte Esterase,Urine Negative (Negative); Mucus,Urine Moderate per lpf (None-Few); Nitrite,Urine Negative (Negative); PH,Urine 6.5 pH Units (5.0-8.0); Protein,Urine 70 mg/dL (Neg-Trace); RBC,Urine 15-30 per hpf (0-3); Specific Gravity,Urine > 1.030 (1.010-1.025); Sperm,Urine Present per hpf (None Seen); Squamous Epithelial Cell,Urine Few per hpf (None-Few); Urobilinogen,Urine Normal (Normal)
[2022-04-23 06:00] LABS: Influenza A PCR Negative (Negative); Influenza B PCR Negative (Negative); Resp. Syncytial Virus PCR Negative (Negative)
[2022-04-23 06:01] LABS: SARS-CoV-2 by PCR (In House) Negative (Negative)
[2022-04-23] MEDS ORDERED: traZODone 50 MG TABLET PO PRN (06:35)
[2022-04-23] MEDS ORDERED: Mag Hydrox/Al Hydrox/Simeth 30 ML UDC PO PRN (06:35)
[2022-04-23] MEDS ORDERED: Ibuprofen 400 MG TABLET PO PRN (06:35)
[2022-04-23] MEDS ORDERED: Acetaminophen 325 MG TABLET PO PRN (06:35)
[2022-04-23] MEDS ORDERED: hydrOXYzine pamoate 25 MG CAPSULE PO PRN (06:35)
[2022-04-23] MEDS ORDERED: MOM Conc 10 ML UD.LIQ PO PRN (06:35)
[2022-04-23] MEDS ORDERED: Haloperidol Lactate 5 MG/ML VIAL IM PRN (06:35)
[2022-04-23] MEDS ORDERED: haloperidoL 5 MG TABLET PO PRN (06:35)
[2022-04-23] MEDS ORDERED: *HR* LORazepam 2 MG/ML VIAL IM PRN (06:35)
[2022-04-23] MEDS ORDERED: *HR* LORazepam 1 MG TABLET PO PRN (06:35)
[2022-04-23] MEDS ORDERED: BuPROPion XL (24 HR) 150 MG TABLET PO SCH (09:00)
[2022-04-23] MEDS: ARIPiprazole 5 MG TABLET PO SCH (09:42)
[2022-04-23 09:49] VITALS: O2SAT 98
[2022-04-23] MEDS ORDERED: BuPROPion XL (24 HR) 150 MG TABLET PO ONE (11:13)
[2022-04-24] MEDS: BuPROPion XL (24 HR) 150 MG TABLET PO SCH (09:02)
[2022-04-24] MEDS: ARIPiprazole 5 MG TABLET PO SCH (09:03)
[2022-04-24] MEDS ORDERED: BuPROPion XL (24 HR) 150 MG TABLET PO ONE (11:13)
[2022-04-24] MEDS: Nicotine 2 MG GUM BC PRN (17:02)
[2022-04-25 09:36] VITALS: BP 130/89; PULSE 90; TEMP 97.7
[2022-04-25] MEDS: ARIPiprazole 5 MG TABLET PO SCH (09:41)
[2022-04-25] MEDS: BuPROPion XL (24 HR) 150 MG TABLET PO SCH (09:41)
[2022-04-25] MEDS: Nicotine 2 MG GUM BC PRN (09:50)
== END 2022-04-25 10:35 | disposition home or self-care (01) | DRG 885 ==
LOC: EMEROOARM 21:43 → 1ANU 04-23 06:17
PROVIDERS: ADMIT Psychiatry & Neurology Psychiatry; ATTEND Psychiatry & Neurology Psychiatry